=== PATIENT | female | born 1970 | race Hispanic/Latino ===

== ENCOUNTER → 2024-12-14 | Emergency (ER) | payer BC ==
[~2024-12-14] VITALS: Ht 162.6 cm; Wt 91.2 kg
[~2024-12-14] MED LIST: [UNRECOGNIZED DRUG - OTHER] PO
--- NOTE | 2024-12-14 20:53 | NUR ---
UA CUP PROVIDED
[2024-12-14 21:17] LABS: IMMATURE GRANULOCYTE ABSOLUTE 0.02 K/uL (0-1); NUCLEATED RED BLOOD CELLS 0.0 % (0.0-0.19); PLATELET COUNT (AUTO) 225 K/uL (130-400); RED BLOOD CELL COUNT(AUTO) 3.97 MIL/uL (4.00-5.50); RED CELL DISTRIBUTION WIDTH 12.5 % (11.0-15.5); WHITE BLOOD COUNT (AUTO) 5.6 K/uL (4.8-10.8)
[2024-12-14 21:26] LABS: APPEARANCE,URINE CLEAR (CLEAR); GLUCOSE, URINE (UA) NEGATIVE (NEGATIVE); LEUKOCYTE ESTERASE ,URINE NEGATIVE Leu/uL (NEGATIVE); NITRATE,URINE NEGATIVE (NEGATIVE); OCCULT BLOOD,URINE SMALL (NEGATIVE)
[2024-12-14 21:26] LABS: CREATININE 0.6 mg/dL (0.5-1.0); GLOMERULAR FILTR. RATE CALC 108.0 mL/min (>90); GLUCOSE,RANDOM 79.0 mg/dL (70-105); SODIUM SERUM 139.0 mmol/L (136-145); UREA NITROGEN, BLOOD 16.0 mg/dL (7-18)
[2024-12-14 21:28] LABS: ADD UA MICROSCOPIC YES; HCG,QUALITATIVE URINE NEGATIVE (NEGATIVE)
[2024-12-14 21:29] LABS: SQUAMOUS EPITHELIAL CELL,UR FEW /HPF (0-2)
[2024-12-14 21:37] LABS: ASPARTATE AMINOTRANSFERASE 15.0 U/L (10-37); TOTAL PROTEIN, SERUM 7.0 g/dL (6.0-8.3)
--- NOTE | 2024-12-14 21:43 | HMCIMG ---
EXAM: US for Deep Venous Thrombosis, bilateral Lower Extremity. CLINICAL HISTORY: Leg Pain and Swelling TECHNIQUE: Real-time ultrasound scan of the veins of the bilateral lower extremity with color Doppler flow, spectral waveform analysis and compression. COMPARISON: None provided. FINDINGS: DEEP VEINS: The common femoral, superficial femoral, and popliteal veins are echolucent and compressible. There is normal color Doppler flow throughout. The visualized calf veins appear patent. SOFT TISSUES: No popliteal fossa cyst or other abnormalities. IMPRESSION: No deep venous thrombosis evident on bilateral lower extremity examination. /[place]
--- NOTE | 2024-12-14 22:08 | EKG ---
[facility] [place] Test Date: 2024-12-14 Test Time: 22:03:47 Pat Name: CANDELARIA ARELLANO Department: [facility] Room: Gender: F Director Of Operations Support: [id number] : [id number] Requested By: RENA MILES Order Number: [id number] Reading MD: Lion Chaney Measurements Intervals [place] Rate: 69 P: 57 NJ: 212 QRS: 23 QRSD: 89 T: 35 QT: 392 QTc: 420 Interpretive Statements Sinus rhythm Prolonged [place] interval No previous ECG available for comparison Electronically Signed On 12-15-2024 13:24:04 CDT by Lion Chaney Please click the below link to view image of tracing.
--- NOTE | 2024-12-14 22:24 | HMCIMG ---
EXAM: CR Chest, 1 View. CLINICAL HISTORY: SOB, BILATERAL LOWER EXTREMITY EDEMA COMPARISON: None provided. FINDINGS: LUNGS: The lungs show no infiltrate or other acute finding. PLEURAL SPACES: No pleural effusion or pneumothorax. MEDIASTINUM: Cardiac size and mediastinal contours within normal limits. BONES: No acute osseous abnormality. IMPRESSION: No acute cardiopulmonary pathology is evident. /[place]
--- NOTE | 2024-12-14 22:43 | ERN ---
ED Note History of Present Illness Stated Complaint: BILATERAL LOWER EXTR. PAIN, SWELLING Chief Complaint: Lower Extremity Pain/Injury Time Seen by MD: 21:00 Time Seen by Midlevel: 21:00 Dictation: The patient is a 54-year-old female with a history of who presents to the emergency department with complaints of bilateral lower extremity swelling onset 1.5 weeks ago. Patient denies any trauma, denies any recent travel or recent surgery. Reports that she usually elevates her legs and the swelling decreases but recently it has been getting worse. Patient reports some fatigue and shortness of breath with walking. Denies any chest pain. Allergies: Coded Allergies: levofloxacin (Unverified Allergy, Unknown, RASH, 02/17/16) morphine (Unverified Allergy, Unknown, 02/17/16) Home Meds Reported Medications [Gental Sorb] No Conflict Check, 1 TAB PO DAILY 02/17/16 Past Medical History Past Medical History: No Pertinent History Surgical History: RN Note Reviewed/Agreed w/PFSH: Yes Review of System Dictation Constitutional: Negative for fever,chills, and weight loss Eyes: Negative for injury, pain,redness, and discharge ENT: Negative for injury,pain or swelling Cardiovascular: Negative for chest pain, palpitations positive for bilateral lower extremity edema Respiratory: Negative for shortness of breath, cough, and wheezing, Abdomen/GI: Negative for abdominal pain, nausea, vomiting, diarrhea, and constipation Back: Negative for injury and pain : Negative for injury, bleeding and discharge MS/Extremity: Negative for injury and deformity Skin: Negative for rash, and discoloration Neuro: Negative for headache, weakness, numbness, tingling, and seizure Psych: Negative for suicide ideation, homicidal ideation, and hallucinations Initial Vital Sign VS Vital Signs Date Time Temp Pulse Resp B/P (MAP) Pulse Ox O2 Delivery O2 Flow Rate FiO2 12/14/24 20:50 98.1 72 20 126/73 100 Room Air Physical Exam Dictation Vital Signs reviewed General Appearance: Alert, oriented x 3, no acute distress, well developed, nourished. Head and Face: non-traumatic. Eyes: PERRL, pink conjunctivas, eyelid no trauma, anterior chamber with arcus senilis. Ears: Pinnas intact and no signs of trauma or erythema ear canals clear and no discharge TM no erythema Nose: No discharge, no bleeding. Oropharynx: Mouth normal, tongue pink. pharynx clear,no erythema, tonsils no exudates, no abscesses noted, mucous membrane moist Neck: Supple, non-tender, no thyromegaly, no masses, no JVD, no bruits Breast:Deferred Chest:No tenderness, no crepitus, no paradoxical movement, no retractions Lungs:Clear, well-ventilated, symmetric, no rales, no wheezing, no rhonchi, no stridor, good breath sounds bilaterally Heart: Regular rate, regular rhythm, no murmur, no gallops Vascular: Nonpitting bilateral lower extremity edema Abdomen: Soft, positive bowel sounds, nondistended, no guarding, nontender, no rebound, no masses no hepatomegaly, no splenomegaly, no Briggs's sign, no hernias. Rectal: Deferred Genital: Deferred Neurological: Normal speech, motor function intact, sensory function intact Musculoskeletal: Neck nontender, full range of motion, back nontender, full range of motion, Extremities: nontender, full range of motion Skin: Color pink, dry, no turgor, no rash, no lacerations, no abrasions, no contusions. Lymphatic: Deferred Results (Laboratory/Radiology) Laboratory/Radiology Laboratory Tests Test 12/14/24 21:11 12/14/24 21:15 White Blood Count 5.6 K/uL (4.8-10.8) Red Blood Count 3.97 MIL/uL (4.00-5.50) L Hemoglobin 12.7 g/dL (12.0-16.0) Hematocrit 37.8 % (36-48) Mean Corpuscular Volume 95.2 fL (79-99) Mean Corpuscular Hemoglobin 32.0 pg (27.0-33.0) Mean Corpuscular Hemoglobin Concent 33.6 g/dL (32.0-36.0) Red Cell Distribution Width 12.5 % (11.0-15.5) Platelet Count 225 K/uL (130-400) Mean Platelet Volume 10.8 fL (7.5-10.5) H Immature Granulocyte % (Auto) 0.4 % (0-1) Neutrophils (%) (Auto) 50.3 % (40.0-77.0) Lymphocytes (%) (Auto) 39.3 % (21.0-51.0) Monocytes (%) (Auto) 8.2 % (3.0-13.0) Eosinophils (%) (Auto) 1.1 % (0.0-8.0) Basophils (%) (Auto) 0.7 % (0.0-5.0) Neutrophils # (Auto) 2.8 K/uL (1.8-7.7) Lymphocytes # (Auto) 2.2 K/uL (1.0-4.8) Monocytes # (Auto) 0.5 K/uL (0.1-1.0) Eosinophils # (Auto) 0.06 K/uL (0.00-0.70) Basophils # (Auto) 0.04 K/uL (0.00-0.20) Absolute Immature Granulocyte (auto 0.02 K/uL (0-1) Nucleated Red Blood Cells 0.0 % (0.0-0.19) Sodium Level 139 mmol/L (136-145) Potassium Level 3.7 mmol/L (3.5-5.1) Chloride Level 103 mmol/L (101-111) Carbon Dioxide Level 32 mmol/L (21-32) Blood Urea Nitrogen 16 mg/dL (7-18) Creatinine 0.6 mg/dL (0.5-1.0) Glomerular Filtration Rate Calc 108 mL/min (>90) Random Glucose 79 mg/dL (70-105) Total Calcium 8.7 mg/dL (8.5-10.1) Total Bilirubin 0.3 mg/dL (0.2-1.0) Direct Bilirubin 0.1 mg/dL (0.0-0.3) Aspartate Amino Transf (AST/SGOT) 15 U/L (10-37) Alanine Aminotransferase (ALT/SGPT) 18 U/L (12-78) Alkaline Phosphatase 88 U/L (50-136) Troponin I High Sensitivity 4 ng/L (4-50) B-Type Natriuretic Peptide 21 pg/mL (0-100) Total Protein 7.0 g/dL (6.0-8.3) Albumin 3.2 g/dL (3.5-5.0) L Urine Color LIGHT-YELLOW (YELLOW) Urine Appearance CLEAR (CLEAR) Urine pH 7.0 (5.0-8.0) Urine Specific Felt 1.022 (1.001-1.031) Urine Protein NEGATIVE mg/dL (NEGATIVE) Urine Glucose (UA) NEGATIVE mg/dL (NEGATIVE) Urine Ketones NEGATIVE mg/dL (NEGATIVE) Urine Occult Blood SMALL (NEGATIVE) H Urine Nitrate NEGATIVE (NEGATIVE) Urine Bilirubin NEGATIVE mg/dL (NEGATIVE) Urine Urobilinogen 3 mg/dL (0.2-1.0) H Urine Leukocyte Esterase NEGATIVE Kal/uL Urine RBC 11-25 /HPF (0-1) H Urine WBC 0-1 /HPF (0-1) Urine Squamous Epithelial Cells FEW /HPF (0-2) Urine Bacteria None /HPF (None Seen) Urine HCG, Qualitative NEGATIVE (NEGATIVE) REASON: lower extremity swelling ORDERING PHYSICIAN: SUSHANT PACK PROCEDURE: VENOUS MEMO - US VENOUS DOPPLER BILATERAL EXAM: US for Deep Venous Thrombosis, bilateral Lower Extremity. CLINICAL HISTORY: Leg Pain and Swelling TECHNIQUE: Real-time ultrasound scan of the veins of the bilateral lower extremity with color Doppler flow, spectral waveform analysis and compression. COMPARISON: None provided. FINDINGS: DEEP VEINS: The common femoral, superficial femoral, and popliteal veins are echolucent and compressible. There is normal color Doppler flow throughout. The visualized calf veins appear patent. SOFT TISSUES: No popliteal fossa cyst or other abnormalities. IMPRESSION: No deep venous thrombosis evident on bilateral lower extremity examination. /[place] REASON: SOB, BILATERAL LOWER EXTREMITY EDEMA ORDERING PHYSICIAN: RENA MILES MD PROCEDURE: CXR1VW - CHEST 1VW EXAM: CR Chest, 1 View. CLINICAL HISTORY: SOB, BILATERAL LOWER EXTREMITY EDEMA COMPARISON: None provided. FINDINGS: LUNGS: The lungs show no infiltrate or other acute finding. PLEURAL SPACES: No pleural effusion or pneumothorax. MEDIASTINUM: Cardiac size and mediastinal contours within normal limits. BONES: No acute osseous abnormality. IMPRESSION: No acute cardiopulmonary pathology is evident. /[place] and wounds Labs Reviewed?: Yes EKG: (+) rhythm (Sinus rhythm) EKG Comment: Date:12/14/2024 Time:2203 Ventricular rate:69 ND interval:212 QRS duration:89 QT/QTc:392/420 EKG interpretation: Sinus rhythm, prolonged ND Reviewed by ED Attending no STEMI ED Course ED Course Orders Procedure Category Date Status Time Cbc With Differential LAB 12/14/24 Complete 20:51 Basic Metabolic Panel LAB 12/14/24 Complete 20:51 B-Type Natriuretic LAB 12/14/24 Complete Peptide 20:51 12 Lead Ekg Tracing- EKG 12/14/24 Complete Technical 20:51 Chest 1vw RAD 12/14/24 Resulted 20:51 Troponin I High LAB 12/14/24 Complete Sensitivity 20:51 Urinalysis Profile LAB 12/14/24 Complete 20:51 ,Urine Test LAB 12/14/24 Complete 20:51 Us Venous Doppler US 12/14/24 Resulted Bilateral 21:04 Hepatic Function Panel LAB 12/14/24 Complete 21:11 Vital Signs Date Time Temp Pulse Resp B/P (MAP) Pulse Ox O2 Delivery O2 Flow Rate FiO2 12/14/24 20:50 98.1 72 20 126/73 100 Room Air Medical Decision Making MDM The patient is a 54-year-old female with a history of who presents to the emergency department with complaints of bilateral lower extremity swelling onset 1.5 weeks ago. Patient denies any trauma, denies any recent travel or recent surgery. Reports that she usually elevates her legs and the swelling decreases but recently it has been getting worse. Patient reports some fatigue and shortness of breath with walking. Denies any chest pain. CBC showed no leukocytosis, mild normocytic anemia, chemistry showed no electrolyte imbalance, normal kidney function, negative troponin, negative BNP, ultrasound revealed no deep vein thrombosis. Chest x-ray showed no acute patho logy. On physical exam patient is in no acute distress, respirations nonlabored. Mild lower extremity nonpitting edema, no erythema, stable vital signs, no hypoxemia, no tachycardia. Patient will be discharged to follow up with PCP. Differential diagnosis: DVT, fluid overload, CHF, kidney failure Need for hospitalization: Patient does not meet criteria for hospitalization. There are no social concerns with this patient. DX & DISP Disposition: Discharge Departure Impression: Primary Impression: Bilateral lower extremity edema Condition: Stable Additional Instructions: Your labs were unremarkable. Your ultrasound did not show any evidence of deep vein thrombosis. You can elevate your legs to help with the swelling. Please follow up with the primary doctor in 1-2 days. If anything worsens please return to ER. FOLLOW-UP WITH PRIMARY CARE PROVIDER IN 1 TO 2 DAYS. TAKE MEDICATIONS DIRECTED HERE IN THE EMERGENCY ROOM. OKAY TO CONTINUE HOME MEDICATIONS UNLESS OTHERWISE DISCUSSED DURING YOUR VISIT IN THE EMERGENCY ROOM TODAY. RETURN TO YOUR NEAREST EMERGENCY ROOM IF SYMPTOMS WORSEN OR IF THERE IS NO IMPROVEMENT. CALL 911 IF YOU NEED IMMEDIATE ASSISTANCE. TAKE TYLENOL [id number] NEEDED AND IF NO CONTRAINDICATIONS ARE PRESENT. INCREASE ORAL HYDRATION. A WOUND CULTURE OR URINE CULTURE WAS ORDERED HERE IN THE EMERGENCY ROOM DEPARTMENT PLEASE FOLLOW-UP WITH PRIMARY CARE PROVIDER AND ADVISE THEM TO GET REPEAT PORTS FROM OUR FACILITY. IF YOU HAD ANY NICKY WRAP/SPLINTS THAT WERE APPLIED HERE, PLEASE DO NOT REMOVE THEM UNTIL YOU SEE YOUR PRIMARY CARE OR SPECIALTY. Referrals: DG BOONE MD (PCP) Time of Disposition: 22:42 I have reviewed the case, and I agree with, Diagnosis and Plan SUSHANT PACK [facility] Dec 14, 2024 22:43
--- NOTE | 2024-12-14 23:03 | NUR ---
ASSUMED PT CARE
[2024-12-14 23:09] VITALS: BP 125/66; PULSE 75; RESP 18; TEMP 98.5; O2SAT 99
== END ==
LOC: EDH 20:49
DX: R60.0 Localized edema (principal); Z88.1 Allergy status to other antibiotic agents; Z88.5 Allergy status to narcotic agent; Z98.890 Other specified postprocedural states
CPT/HCPCS: 36415; 71045; 80048; 80076; 81001; 81025; 83880; 84484; 85025; 93005; 93970; 99284